=== PATIENT | male | born 2000 | race Caucasian/White ===

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

== ENCOUNTER 2023-08-30 17:38 | Emergency (ER) | payer OTHER ==
[~2023-08-30] VITALS: Ht 180.3 cm; Wt 94.1 kg
[2023-08-30] MEDS ORDERED: CEPH500C PO (18:57)
[2023-08-30] MEDS: CEPHALEXIN 500 MG CAP PO ONE (18:59)
[2023-08-30 19:16] VITALS: BP 144/65; TEMP 98.4; O2SAT 98
== END 2023-08-30 19:18 | disposition home or self-care (01) ==
LOC: M ED 17:38
DX: S92.425A Nondisplaced fracture of distal phalanx of left great toe, initial encounter for closed fracture (principal); S90.212A Contusion of left great toe with damage to nail, initial encounter; S90.412A Abrasion, left great toe, initial encounter; W20.8XXA Other cause of strike by thrown, projected or falling object, initial encounter; Y92.9 Unspecified place or not applicable; Y93.9 Activity, unspecified; Y99.0 Civilian activity done for income or pay